=== PATIENT | female | born 1975 | race Hispanic/Latino ===

== ENCOUNTER 2024-09-15 20:30 | Emergency (ER) | payer SELFPAY ==
[2024-09-16] MEDS ORDERED: Ketorolac Tromethamine 30 MG (1 mL) VIAL ONE (01:01)
== END 2024-09-16 01:26 | disposition home or self-care (01) ==
LOC: ERS 20:30
DX: M75.31 Calcific tendinitis of right shoulder (principal); E11.9 Type 2 diabetes mellitus without complications
CPT/HCPCS: 36416; 96372; 99283; J1885